=== PATIENT | male | born 1945 | race Caucasian/White ===

== ENCOUNTER 2019-05-08 15:52 | Emergency (ER) | payer MEDICARE, BC ==
--- NOTE | 2019-05-08 17:00 | EDM.PDOC ---
ED HPI GENERAL MEDICAL PROBLEM - General Chief Complaint: CPR in Progress Stated Complaint: AMBULANCE Time Seen by Provider: 05/08/19 16:52 Source of Information: Reports: EMS History Limitations: Reports: Other (Cardiac Arrest) - History of Present Illness INITIAL COMMENTS - FREE TEXT/NARRATIVE: This patient arrives via EMS [facility]. The patient was found down by outside at tractor at about 1420. EMS reports in route patient was shocked x1 initially by [facility] using AED. [facility] reports patient has been asystole in route, given EPI x6, Sodium Bicarb x1. Patient arrives at 1552 unchanged. Pupils blown and unresponsive. No carotid or femoral pulses. Asystole, no breathing. [facility] consulted, no further treatment. Time of called at 1555. Onset Date: 05/08/19 Onset Time: 14:20 Treatments HAT AND CAP OPENER: Reports: CPR, IV/IO, Oxygen, See EMS Report, Other (see below) ( Epi x6, Sodium Bicarb x1. Emiliano Tube 4) - Related Data Allergies Allergy/AdvReac Type Severity Reaction Status Date / Time Unable to Assess Allergy Unverified 05/08/19 17:47 Home Meds: Home Meds Losartan [Cozaar] 50 mg PO DAILY 05/08/19 [History] ED ROS GENERAL - Review of Systems Review Of Systems: Unable To Obtain Reason Not Obtained: Unresponsive: CPR in Progress ED EXAM, CPR - Physical Exam Exam: See Below Limited By: Unresponsive General Appearance: Severe Distress, Obese Eye Exam: Bilateral Eye: Abnormal Pupil (blown and unresponsive) Respiratory Chest: Respiratory Distress (No breathing) Cardiovascular: CPR In Progress, Other (No pulses carotid or femoral. Asystole.) 0: Right Carotid, Left Carotid, Femoral (R), Femoral (L) Extremities: Mottled (cool to touch) Neurological: Unresponsive, Unresponsive Skin Exam: Cool, Cyanosis Departure - Departure Time of Disposition: 15:55 Disposition: 20 Preliminary Cause of *Q: Cardiac Arrest Clinical Impression: Cardiac arrest - Discharge Information *PRESCRIPTION DRUG MONITORING PROGRAM REVIEWED*: Not Applicable *COPY OF PRESCRIPTION DRUG MONITORING REPORT IN PATIENT MARY: Not Applicable Referrals: Jessica Sutton PA-C [Primary Care Provider] - Forms: ED Department Discharge Sepsis Event Note - Focused Exam Date Exam was Performed: 05/10/19 Time Exam was Performed: 00:15 - Assessment/Plan Plan: PLEASE SEE RN NOTE FOR PFSH
== END 2019-05-08 19:35 | disposition expired ==
LOC: EDBD 15:52 → CC.ED 15:52
DX: I46.9 Cardiac arrest, cause unspecified (principal)
CPT/HCPCS: 92950; 99284; 99285-25